=== PATIENT | male | born 1980 | race Caucasian/White ===

== ENCOUNTER 2024-07-18 08:13 | Outpatient (CLI) | payer OTHER ==
[2024-07-18] MEDS ORDERED: iohexoL-240 10 ML VIAL IVP ONE (08:24)
[2024-07-18] MEDS ORDERED: LIDOCAINE-MPF 1% 5 ML VIAL ONE (08:24)
[2024-07-18] MEDS ORDERED: GADOTERATE MEGLUMINE 5 MMOL/10 ML VIAL ONE (08:24)
[2024-07-18] MEDS: GADOTERATE MEGLUMINE 5 MMOL/10 ML VIAL IVP ONE (09:46)
[2024-07-18] MEDS: LIDOCAINE-MPF 1% 5 ML VIAL TD ONE (09:48)
[2024-07-18] MEDS: iohexoL-240 10 ML VIAL IVP ONE (09:49)
--- NOTE | 2024-07-18 13:17 | MRI Report ---
PROCEDURE: Arthrogram Knee RT INDICATIONS: R KNEE PAIN CONTRAST: No intravenous contrast. Please see the same day right knee arthrogram report for details r egarding intra-articular contrast administration. TECHNIQUE: After the administration of dilute intra-articular Gadolinium contrast, sagittal T1 spin echo with fa t saturation and PD fast spin echo with fat saturation, coronal T1 spin echo with and without fat sat uration, coronal T2 fast spin echo with fat saturation, axial PD fast spin echo with fat saturation t hrough the knee. COMPARISON: Right knee arthrogram 07/18/2024 FINDINGS: Image quality: Diagnostic; susceptibility artifact is present secondary to prior ACL reconstruction. Bones: The bone marrow signal is normal. There is no acute fracture or dislocation. Joints: Intra-articular contrast is present within the knee joint. There is no significant knee osteo arthritis. Longoria's cyst: None. Menisci: The medial meniscus is normal. The lateral meniscus is normal. The posterior root attachmen ts are normal. There is no meniscal body extrusion. Cruciate ligaments: The anterior cruciate ligament graft orientation and signal is preserved. The pos terior cruciate ligament is normal. Collateral ligaments: The medial collateral ligament complex is normal. The lateral collateral ligame nt complex is normal. Popliteus Muscle/Tendon: The popliteus muscle and tendon are normal. Extensor mechanism: The quadriceps tendon is normal. The patellar tendon is normal. The medial and la teral patellar retinacular attachments are normal. Articular cartilage: Partial-thickness chondral loss and surface fibrillation is present at the media l patellar ridge (3/9). Minimal surface fibrillation is present at the weightbearing medial compartme nt (13-15). Other: Postsurgical changes are present at Hoffa's fat pad without development of arthrofibrosis. IMPRESSION: 1.No MR evidence of ACL graft failure. 2.No posterior cruciate or meniscal tear. 3.Mild articular cartilage defects at the medial patella and medial weightbearing compartment without subchondral marrow changes. Reviewed by: Maurisio Grajeda MD on 07/18/2024 1:15 PM PDT Approved by: Maurisio Grajeda MD on 07/18/2024 1:15 PM PDT Station ID: [id number]
== END 2024-07-18 08:14 | disposition home or self-care (01) ==
LOC: DI 08:13
PROVIDERS: ATTEND Student in an Organized Health Care Education/Training Program
DX: M23.91 Unspecified internal derangement of right knee (principal)
CPT/HCPCS: 27369; 73722; 77002; A9575; Q9966